=== PATIENT | female | born 1950 | race Two or more races ===

== ENCOUNTER → 2017-04-08 | Emergency (ER) | payer OTHER ==
[~2017-04-08] VITALS: Ht 165.1 cm; Wt 70.3 kg
[~2017-04-08] MED LIST: AMARYL PO; ASA81 MG; JANUMET 50-1,01 EACH PO; LISINOPRIL10 MG; MEFOXIN 1GM M1000 MG
== END | disposition home or self-care (01) ==
LOC: ER 13:40
DX: L60.0 Ingrowing nail (principal); L02.512 Cutaneous abscess of left hand; B96.1 Klebsiella pneumoniae [K. pneumoniae] as the cause of diseases classified elsewhere; B96.89 Other specified bacterial agents as the cause of diseases classified elsewhere

== ENCOUNTER 2017-05-03 08:25 | Outpatient (CLI) | payer OTHER | END 2017-05-03 08:41 | disposition home or self-care (01) | LOC: MAMO-SONO 08:25 | DX: Z12.31 Encounter for screening mammogram for malignant neoplasm of breast (principal); Z87.898 Personal history of other specified conditions; N62 Hypertrophy of breast ==

== ENCOUNTER 2017-05-08 09:02 | Outpatient (CLI) | payer OTHER | END 2017-05-08 09:15 | disposition home or self-care (01) | LOC: LAB 09:02 | DX: I10 Essential (primary) hypertension (principal); E11.9 Type 2 diabetes mellitus without complications; E03.8 Other specified hypothyroidism; E78.2 Mixed hyperlipidemia; K92.1 Melena; D64.0 Hereditary sideroblastic anemia ==

== ENCOUNTER 2017-07-09 08:51 | Emergency (ER) | payer OTHER ==
[~2017-07-09] VITALS: Ht 154.9 cm; Wt 70.3 kg
[2017-07-09] MEDS ORDERED: AVAPRO150 MG PO (09:16)
== END 2017-07-09 10:01 | disposition home or self-care (01) ==
LOC: ER 08:51
DX: L03.116 Cellulitis of left lower limb (principal)

== ENCOUNTER 2017-10-02 14:06 | Outpatient (CLI) | payer OTHER ==
[~2017-10-02 14:06] MED LIST changes: +AVAPRO150 MG PO
[2017-10-05] MEDS ORDERED: CRESTOR10 MG PO (09:47)
[2017-10-05] MEDS ORDERED: VITAMIN D400 UNI5 PO (09:48)
== END 2017-10-02 14:11 | disposition home or self-care (01) ==
LOC: RAD 14:06
DX: Z01.810 Encounter for preprocedural cardiovascular examination (principal)

== ENCOUNTER → 2017-10-10 | Day surgery (SDC) | payer OTHER ==
[~2017-10-10] MED LIST changes: +CRESTOR10 MG PO; +VITAMIN D400 UNI5 PO
== END | disposition home or self-care (01) ==
LOC: ADM 10-05 07:45 → CIR.AMB 07:00
DX: M24.542 Contracture, left hand (principal); M65.332 Trigger finger, left middle finger; M65.342 Trigger finger, left ring finger

== ENCOUNTER 2017-12-21 14:49 | Outpatient (CLI) | payer OTHER | END 2017-12-21 14:51 | disposition home or self-care (01) | LOC: RAD 14:49 | DX: M12.872 Other specific arthropathies, not elsewhere classified, left ankle and foot (principal); M12.871 Other specific arthropathies, not elsewhere classified, right ankle and foot; M19.072 Primary osteoarthritis, left ankle and foot; M19.071 Primary osteoarthritis, right ankle and foot ==

== ENCOUNTER 2018-04-13 12:53 | Outpatient (CLI) | payer OTHER | END 2018-04-13 13:06 | disposition home or self-care (01) | LOC: SONOGRAMA 12:53 → MAMO-SONO 13:45 | DX: M12.9 Arthropathy, unspecified (principal); M19.90 Unspecified osteoarthritis, unspecified site ==

== ENCOUNTER 2018-09-26 14:26 | Outpatient (CLI) | payer OTHER | END 2018-09-26 14:29 | disposition home or self-care (01) | LOC: MRI 14:26 | DX: M75.31 Calcific tendinitis of right shoulder (principal) | CPT/HCPCS: 73221 ==

== ENCOUNTER 2019-03-29 13:46 | Outpatient (CLI) | payer OTHER | END 2019-03-29 13:48 | disposition home or self-care (01) | LOC: SONOGRAMA 13:46 → MAMO-SONO 04-01 13:15 | DX: M75.02 Adhesive capsulitis of left shoulder (principal); M75.82 Other shoulder lesions, left shoulder ==

== ENCOUNTER 2020-06-26 07:39 | Outpatient (CLI) | payer OTHER | END 2020-06-26 07:50 | disposition home or self-care (01) | LOC: SONOGRAMA 07:39 → MAMO-SONO 09:45 | PROVIDERS: ATTEND Internal Medicine Cardiovascular Disease | DX: N63.11 Unspecified lump in the right breast, upper outer quadrant (principal); M12.9 Arthropathy, unspecified ==

== ENCOUNTER 2020-11-18 08:23 | Outpatient (CLI) | payer OTHER | END 2020-11-18 08:50 | disposition home or self-care (01) | LOC: SONOGRAMA 08:23 → MAMO-SONO 08:23 → SONOGRAMA 08:50 | PROVIDERS: ATTEND Orthopaedic Surgery | DX: M25.511 Pain in right shoulder (principal); M75.121 Complete rotator cuff tear or rupture of right shoulder, not specified as traumatic ==

== ENCOUNTER 2020-12-10 09:22 | Outpatient (CLI) | payer OTHER | END 2020-12-10 15:00 | disposition home or self-care (01) | LOC: LAB 09:22 | PROVIDERS: ATTEND Orthopaedic Surgery | DX: I10 Essential (primary) hypertension (principal); R94.31 Abnormal electrocardiogram [ECG] [EKG]; Z03.818 Encounter for observation for suspected exposure to other biological agents ruled out; D68.8 Other specified coagulation defects; E78.2 Mixed hyperlipidemia; N39.0 Urinary tract infection, site not specified; R07.89 Other chest pain ==

== ENCOUNTER 2020-12-15 05:00 | Day surgery (SDC) | payer OTHER ==
[2020-12-15] MEDS ORDERED: PERCOCET 5-3251 EACH PO (12:02)
[2020-12-15] MEDS ORDERED: NABUMETONE500 MG PO (12:02)
== END 2020-12-15 15:30 | disposition home or self-care (01) ==
LOC: CIR.AMB 05:00
PROVIDERS: ATTEND Orthopaedic Surgery
DX: M75.121 Complete rotator cuff tear or rupture of right shoulder, not specified as traumatic (principal); M66.821 Spontaneous rupture of other tendons, right upper arm; M75.41 Impingement syndrome of right shoulder

== ENCOUNTER 2021-05-24 17:12 | Emergency (ER) | payer OTHER ==
[~2021-05-24] VITALS: Ht 154.9 cm; Wt 68.0 kg
[~2021-05-24 17:12] MED LIST changes: +MELOXICAM15 MG PO; +NABUMETONE500 MG PO; +NAPR500T14 PO; +PERCOCET 5-3251 EACH PO; +ZANAFLEX2 MG PO
[2021-05-24] MEDS ORDERED: POLY119PG PO (20:57)
[2021-06-02] MEDS ORDERED: DICLOFENAC SOD100 GM TOP (12:49)
== END 2021-05-24 21:06 | disposition home or self-care (01) ==
LOC: ER 17:12
DX: K59.00 Constipation, unspecified (principal); I10 Essential (primary) hypertension; E11.9 Type 2 diabetes mellitus without complications; Z79.84 Long term (current) use of oral hypoglycemic drugs

== ENCOUNTER 2021-10-18 09:04 | Emergency (ER) | payer OTHER ==
[~2021-10-18] VITALS: Ht 157.5 cm; Wt 68.0 kg
[~2021-10-18 09:04] MED LIST changes: +DICLOFENAC SOD100 GM TOP; +POLY119PG PO
[2021-10-18] MEDS ORDERED: ADULT LOW DOSE81 M1 PO (09:43)
== END 2021-10-18 15:31 | disposition home or self-care (01) ==
LOC: ER 09:04
DX: K59.00 Constipation, unspecified (principal)

== ENCOUNTER 2022-01-17 13:26 | Outpatient (CLI) | payer OTHER ==
[~2022-01-17 13:26] MED LIST changes: +ADULT LOW DOSE81 M1 PO
== END 2022-01-17 13:37 | disposition home or self-care (01) ==
LOC: MAMO-SONO 13:26
PROVIDERS: ATTEND Internal Medicine Cardiovascular Disease
DX: M12.9 Arthropathy, unspecified (principal); N63.11 Unspecified lump in the right breast, upper outer quadrant

== ENCOUNTER 2022-11-08 11:57 | Emergency (ER) | payer OTHER ==
[~2022-11-08] VITALS: Ht 157.5 cm; Wt 68.0 kg
== END 2022-11-08 17:32 | disposition home or self-care (01) ==
LOC: ER 11:58
DX: G44.209 Tension-type headache, unspecified, not intractable (principal); E11.9 Type 2 diabetes mellitus without complications; Z79.84 Long term (current) use of oral hypoglycemic drugs
CPT/HCPCS: 96372; 99283; J1885; J2360

== ENCOUNTER 2024-01-14 15:22 | Emergency (ER) | payer OTHER ==
[~2024-01-14] VITALS: Ht 154.9 cm; Wt 61.2 kg
[2024-01-14] MEDS ORDERED: AVAPRO150 MG (16:01)
[2024-01-14] MEDS ORDERED: EZALLOR SPRINKL20 MG (16:01)
[2024-01-14] MEDS ORDERED: JANUMET 50-5001 EACH (16:01)
[2024-01-14 16:47] LABS: HEMATOCRIT 37.7 % (36.0-45.00); HEMOGLOBIN 13.1 g/dL (12.0-15.00); MEAN CELL VOLUME 87.4 fL (80.00-100.00); MEAN CORPUSCULAR HEMOGLOBIN 30.4 pg (27.00-32.0); MEAN CORPUSCULAR HGB CONC 34.8 g/dl (32.0-36.0); PLATELET COUNT 207 K/uL (150-450); RED BLOOD COUNT 4.31 M/uL (4.00-6.00); RED CELL DISTRIBUTION WIDTH 14.6 % (11.5-14.5)
[2024-01-14 17:22] LABS: CALCIUM 9.8 mg/dL (8.5-10.1); CREATININE SERUM 1.05 mg/dL (0.55-1.02); GFR 51.52; POTASSIUM 4.31 mEq/L (3.5-5.1)
== END 2024-01-14 18:18 | disposition home or self-care (01) ==
LOC: ER 15:24
PROVIDERS: General Practice
DX: R42 Dizziness and giddiness (principal); T50.905A Adverse effect of unspecified drugs, medicaments and biological substances, initial encounter; I10 Essential (primary) hypertension; E11.9 Type 2 diabetes mellitus without complications; Z79.84 Long term (current) use of oral hypoglycemic drugs

== ENCOUNTER 2024-04-16 10:57 | Outpatient (CLI) | payer OTHER ==
[~2024-04-16 10:57] MED LIST changes: +AVAPRO150 MG; +EZALLOR SPRINKL20 MG; +JANUMET 50-5001 EACH
== END 2024-04-16 11:05 | disposition home or self-care (01) ==
LOC: TOM 10:57
PROVIDERS: ATTEND Internal Medicine Cardiovascular Disease
DX: G30.9 Alzheimer's disease, unspecified (principal)

== ENCOUNTER 2024-09-04 13:55 | Emergency (ER) | payer OTHER ==
[~2024-09-04] VITALS: Ht 165.1 cm; Wt 63.0 kg
[2024-09-04 15:30] VITALS: BP 160/77; O2SAT 100
[2024-09-04] MEDS ORDERED: CEFTRIAXONE SODIUM 1,000 MG VIAL IM ONE (16:15)
[2024-09-04 16:31] LABS: BASO % 0.3 % (0.1-1.2); EOS # 0.05 (0.04-0.54); EOS % 0.6 % (0.7-7.0); LYMPH # 1.33 (1.18-3.74); LYMPH % 15.0 % (19.3-53.1); MEAN PLATELET VOLUME 8.90 fl (9.4-12.4); MONO # 0.62 (0.24-0.82); MONO % 7.0 % (4.7-12.5); NEUT # 6.80 (1.56-6.13); NEUT % 76.8 % (34.0-71.1); RED CELL DISTRIBUTION WIDTH 13.6 % (11.6-14.4)
[2024-09-04 16:54] LABS: ALT/SGPT 16.0 U/L (12-78); AST/SGOT 10.0 U/L (15-37); BILIRUBIN TOTAL 0.66 mg/dL (0.3-1.2); BUN CREA RATIO 17.0 (7.0-25.0); CREATININE SERUM 0.94 mg/dL (0.55-1.02); GFR 58.37; GLOBULINA 4.0 G/DL (2.4-3.5); GLUCOSE FASTING 127.0 mg/dL (65-100); OSMOLALITY SERUM 284.0 MOSM/KG (275-295)
[2024-09-04] MEDS ORDERED: BACTRIM DS TAB1 EACH PO (18:44)
== END 2024-09-04 19:43 | disposition home or self-care (01) ==
LOC: ER 14:12
PROVIDERS: General Practice
DX: L03.019 Cellulitis of unspecified finger (principal); I10 Essential (primary) hypertension; E11.9 Type 2 diabetes mellitus without complications; Z79.84 Long term (current) use of oral hypoglycemic drugs
CPT/HCPCS: 36415; 96372; 99282; J0696

== ENCOUNTER → 2024-10-22 08:44 | Outpatient (CLI) | payer OTHER ==
[~2024-10-22 08:44] MED LIST changes: +BACTRIM DS TAB1 EACH PO
== END | disposition home or self-care (01) ==
LOC: NUCLEAR 08:44
PROVIDERS: ATTEND Internal Medicine Cardiovascular Disease
DX: R41.2 Retrograde amnesia (principal)
CPT/HCPCS: 78803; A9557